=== PATIENT | male | born 1960 | race Caucasian/White ===

== ENCOUNTER 2021-04-05 08:21 | Outpatient (CLI) | payer MEDICAID, SELFPAY ==
--- NOTE | ~2021-04-05 | NM_ITS ---
EXAMINATION: NM lucia stress w perfusion DATE: 04/05/2021 13:08 INDICATION: Abnormal results of cardiovascular function study TECHNIQUE: Rest images were obtained following intravenous administration of 7.3 mCi Tc99m tetrofosmi n (Myoview). The patient was infused intravenously with Lexiscan (Regadenoson). Then, 23.8 mCi Tc99m tetrofosmin (Myoview) was administered intravenously, and stress images were obtained. Data was recon structed into short axis and horizontal and vertical long axis SPECT images. Gated SPECT images were also obtained. COMPARISON: None. FINDINGS: There is a perfusion defect involving the inferior basilar and inferolateral basilar segmen ts, the latter reversible consistent with ischemia and the former nonreversible consistent with infar ct. There is normal left ventricular chamber size, wall motion and ejection fraction. Left ventricu lar ejection fraction measures 53%. IMPRESSION: 1. Moderate severity nonreversible infarct at the basilar inferior segment with adjacent mild reversi ble ischemia at the basilar inferolateral segment. 2. Left ventricular ejection fraction measuring 53%. Reviewed, dictated and finalized at location A. IMPRESSION: 1. Moderate severity nonreversible infarct at the basilar inferior segment with adjacent mild reversible ischemia at the basilar inferolateral segment. 2. Left ventricular ejection fraction measuring 53%.
--- NOTE | 2021-04-05 08:32 | ECHO_ITS ---
Patient Info Name: Alfa Francisco Age: 60 years : 1960 Gender: Male Ht: 68 in Wt: 185 lbs BSA: 2.03 m2 HR: 58 bpm BP: 118 / 71 mmHg Technical Quality: Good Exam Date: 04/05/2021 8:48 AM Exam Location: [facility] Patient Status: Outpatient Admit Date: 04/05/2021 Staff Ordering Physician: Duane Jung MD Gunite Nozzle Operator: Shaneka Heck RDCS Attending Provider: Duane Jung MD Referring Physician: Fabiana LORENZO; Exam Type: CA echo doppler color flow Study Info Indications - STARKEY Complete two-dimensional, color flow and Doppler transthoracic echocardiogram is performed. Summary 1. Complete two-dimensional, color flow and Doppler transthoracic echocardiogram is performed. 2. Left ventricular chamber dimension is mildly enlarged. 3. Left ventricular systolic function is moderately reduced, estimated at 35-40%. 4. Inferior/posterior wall and lateral uriarte are hypokinetic. 5. The left ventricular diastolic function is grade I diastolic dysfunction. 6. E/e' 7 is not elevated. 7. Global longitudinal strain is abnormal at -16.1%. 8. Left atrial chamber dimension is mildly enlarged. 9. There is mild mitral valve regurgitation. 10. There is trace tricuspid valve regurgitation. 11. No pulmonary hypertension, estimated pulmonary arterial systolic pressure is 25 mmHg. Left Ventricle Inferior/posterior wall and lateral uriarte are hypokinetic. E/e' 7 is not elevated. Global longitudinal strain is abnormal at -16.1%. Left ventricular chamber dimension is mildly enlarged. Left ventricular systolic function is moderately reduced, estimated at 35-40%. The left ventricular diastolic function is grade I diastolic dysfunction. Right Ventricle Right ventricular chamber dimension is normal. Right ventricular systolic function is normal. Left Atria Left atrial chamber dimension is mildly enlarged. Right Atria Right atrial chamber dimension is normal. Aortic Valve The aortic valve is trileaflet. There is no aortic valve stenosis. There is no aortic valve regurgitation. Pulmonic Valve There is no pulmonic regurgitation. Mitral Valve There is no mitral valve stenosis. There is mild mitral valve regurgitation. Tricuspid Valve There is trace tricuspid valve regurgitation. No pulmonary hypertension, estimated pulmonary arterial systolic pressure is 25 mmHg. Pericardium/Pleural There is no pericardial effusion. Inferior Vena Cava Normal inferior vena cava with >50% collapse upon inspiration consistent with normal right atrial pressure, 5 mmHg. Aorta The aortic root size at the sinus of Valsalva is normal. Left Ventricular Outflow Tract Name Value Normal LVOT 2D LVOT Diameter 2.1 cm LVOT Doppler LVOT Peak Gradient 3 mmHg LVOT Mean Gradient 2 mmHg LVOT VTI 19 cm LVOT VTI/AV VTI Ratio 0.7 LVOT Stroke Volume 63 ml LVOT CO 11.9 l/min LVOT CI 5.9 l/min/m2
--- NOTE | 2021-04-05 11:19 | EST_ITS ---
Patient Info Name: Alfa Francisco Age: 60 years : 1960 Gender: Male Ht: 68 in Wt: 185 lbs BSA: 2.03 m2 Exam Date: 04/05/2021 11:59 AM Exam Location: [facility] Stress Patient Status: Outpatient Admit Date: 04/05/2021 Staff Ordering Physician: Duane Jung MD Attending Provider: Duane Jung MD Exercise Technologist: Jael Burleson RDCS Exercise Physician: Yosef Edwards DO Exam Type: CA stress lucia w NM Study Info Indications R06.00 - Dyspnea, unspecified A regadenoson stress test was performed. Summary 1. 1. Negative lexiscan stress test for ischemic ST changes by ECG criteria. 2. 2. Stable hemodynamics throughout the test. 3. 3. Nuclear scan to follow and will be reported separately. Please correlate with it. 4. 4. Patient informed of the above results. Protocol: Lexiscan Stress ECG Details Stage: REST Duration (min): 0 min : 49 sec HR (bpm): 54 SBP (mmHg): 122 DBP (mmHg): 70 Stage: REST Duration (min): 4 min : 45 sec HR (bpm): 63 SBP (mmHg): 122 DBP (mmHg): 70 Stage: STAGE 1 Duration (min): 1 min : 0 sec HR (bpm): 71 SBP (mmHg): 133 DBP (mmHg): 75 Stage: RECOVERY Duration (min): 1 min : 0 sec HR (bpm): 87 SBP (mmHg): 107 DBP (mmHg): 72 Stage: RECOVERY Duration (min): 2 min : 0 sec HR (bpm): 83 SBP (mmHg): 107 DBP (mmHg): 72 Stage: RECOVERY Duration (min): 3 min : 0 sec HR (bpm): 71 SBP (mmHg): 129 DBP (mmHg): 72 Stage: RECOVERY Duration (min): 3 min : 3 sec HR (bpm): 70 SBP (mmHg): 129 DBP (mmHg): 72 Rest HR: 63 bpm Peak HR: 87 bpm Rest Sys BP: 122 mmHg Peak Sys BP: 133 mmHg Max Pred HR: 159 bpm % Max Pred HR: 55 % Target HR: 135 bpm Max RPP: 11,571 bpm*mmHg Termination Reason: Completed protocol Cardiac Symptoms: Shortness of breath Total Time: 1 min : 0 sec Rest Hardy BP: 70 mmHg Peak Hardy BP: 75 mmHg Total Dose: 0.4 mg Resting ECG Sinus rhythm, IRBBB. Stress ECG No ST changes. Arrhythmias None. Report Signatures
== END 2021-04-05 08:22 | disposition home or self-care (01) ==
PROVIDERS: PCP Internal Medicine; Visit Provider Internal Medicine
DX: R06.00 Dyspnea, unspecified (principal); R06.02 Shortness of breath; R53.83 Other fatigue; R42 Dizziness and giddiness; I34.0 Nonrheumatic mitral (valve) insufficiency
CPT/HCPCS: 78452; 93017; 93306; A9502; J2785

== ENCOUNTER 2021-04-30 12:59 | Emergency (ER) | payer MEDICAID, SELFPAY ==
[2021-04-30] VITALS (14 sets, daily range): BP systolic 101–121; BP diastolic 64–88; PULSE 57–69; RESP 11–20; TEMP 36.8; O2SAT 96–100
--- NOTE | ~2021-04-30 | XR_ITS ---
EXAMINATION: XR chest 2V 04/30/2021 13:17 INDICATION: Centralized chest pain PROCEDURE: 2 view chest COMPARISON: 10/02/2016 FINDINGS: The lungs are clear. The cardiomediastinal silhouette is within normal limits. There are no pleural effusions. There is no pneumothorax suspected. IMPRESSION: 1: NO ACUTE CARDIOPULMONARY DISEASE. Reviewed, dictated and finalized at location A.
--- NOTE | 2021-04-30 13:01 | ECG_ITS ---
Measurements Intervals [place]and Rate: 67 P: 12 CO: 167 QRS: 10 QRSD: 110 T: 32 QT: 367 QTc: 390 Interpretive Statements SINUS RHYTHM BASELINE ARTIFACT- I, II, III, AVR, AVF NORMAL ECG Electronically Signed On 04-30-2021 13:23:18 CDT by Yosef Edwards D.O.
[2021-04-30 13:22] LABS: Basophils Absolute Auto 0.1 K/mm3 (0.0-0.1); Eosinophils Absolute Auto 0.3 K/mm3 (0-0.3); Eosinophils Percent Auto 5.5 % (0-4.4); Hemoglobin 14.4 g/dL (14.0-18.0); Immature Granulocyte Absolute 0.02 K/mm3 (0.00-0.031); Immature Granulocyte Percent A 0.4 % (0-0.5); Lymphocytes Absolute Auto 1.78 K/mm3 (0.9-3.2); Lymphocytes Percent Auto 36.3 % (18.3-44.2); Mean Corpuscular HGB Conc 33.5 g/dl (32-36); Mean Corpuscular Hemoglobin 31.2 pg (26-34); Mean Corpuscular Volume 93.3 fl (80-100); Mean Platelet Volume 11.3 fl (7.4-10.4); Monocytes Absolute Auto 0.5 K/mm3 (0.1-0.6); Monocytes Percent Auto 10.6 % (2.6-8.5); Neutrophils Absolute Auto 2.3 K/mm3 (1.3-6.7); Neutrophils Percent Auto 46.2 % (45.5-73.1); Platelet Count Result 197 k/mm3 (150-375); Red Blood Count 4.61 M/mm3 (4.6-6.20); Red Cell Distribution Width 12.7 % (11.5-14.5); White Blood Count 4.9 K/mm3 (4.5-10.0)
[2021-04-30 13:31] LABS: Anion Gap 9 mmol/L (8-16); Blood Urea Nitrogen 16 mg/dL (9-20); Calcium 9.1 mg/dL (8.4-10.2); Carbon Dioxide 26 mmol/L (22-30); Chloride 104 mmol/L (98-107); Estimated CRCL calculation 66 ml/min; Estimated Glomerular Filt Rate > 60; Glucose 274 mg/dL (65-110); Potassium 4.4 mmol/L (3.4-5.0); Sodium 139 mmol/L (137-145)
[2021-04-30 13:37] LABS: INR 0.8; Prothrombin Time 11.5 Seconds (11.1-14.7)
[2021-04-30 13:38] LABS: Partial Thromboplastin Time 21.8 SECONDS (22.3-36.8)
[2021-04-30 13:43] LABS: Troponin I < 0.012 ng/mL (0.000-0.034)
[2021-04-30 17:22] LABS: Troponin I < 0.012 ng/mL (0.000-0.034)
--- NOTE | 2021-04-30 19:17 | ED.GENADULT ---
HPI - General Adult General Chief complaint: Shortness of Breath/Dyspnea Stated complaint: tightness of chest Time Seen by Provider: 04/30/21 16:53 History of Present Illness HPI narrative: Patient is a 60-year-old male who presents ER with chest pain. Occurred earlier today when walking up the stairs. He had sharp left-sided pain that lasted for 1 second or less. It briefly radiated into his left neck. Patient recently had an abnormal stress test and sees Dr. Edwards. He is supposed to get an outpatient cardiac catheterization which has not been scheduled. He has not taken any of his nitroglycerin. Patient has Viagra prescribed but does not take that. He is having no chest pain at this time. No nausea/vomiting/diaphoresis. Reports compliance with home medications. Related Data Home Medications Medication Instructions Recorded Confirmed empagliflozin 25 mg-linagliptin 5 1 tablet PO QAM 04/18/20 04/26/21 mg-metformin ER 1,000 mg tablet,24hr aspirin 81 mg tablet,delayed 81 mg PO DAILY 04/02/21 04/26/21 release ascorbic acid (vitamin C) 500 mg See Rx Instructions PO .COMPLEX 04/03/21 04/26/21 capsule cholecalciferol (vitamin D3) 25 25 mcg PO DAILY 04/03/21 04/26/21 mcg (1,000 unit) capsule tfnkpfbx-uejbrbhu-osewu acid 400 See Rx Instructions PO .COMPLEX 04/03/21 04/26/21 mcg-vit K 20 mcg-lycop 300 mcg tablet omega 5-tkv-oir-fish oil 1,000 mg 1 cap PO TID 04/26/21 04/26/21 (120 mg-180 mg) capsule Allergies Allergy/AdvReac Type Severity Reaction Status Date / Time shellfish derived Allergy Unknown Hives Verified 04/30/21 13:05 Review of Systems Review of Systems: All systems reviewed & are unremarkable except as noted in HPI and below Constitutional: Constitutional: Denies chills, Denies fever(s) and Denies weakness ENT: Denies nasal congestion and Denies sore throat Cardiovascular: Cardiovascular: Reports chest pain, Denies rapid heart rate and Reports radiating jaw, neck or arm pain PMFSH Past Medical History Medical History 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,adult Colon cancer screening Colon cancer screening Diabetic retinopathy STARKEY (dyspnea on exertion) Eczema Encounter for routine adult health examination without abnormal findings Encounter for special screening examination for neoplasm of prostate Fatigue Heartburn Light headed long term use of drug Skin lesion SOB (shortness of breath) Family History Family History Sibling Family history of diabetes mellitus in first degree relative Family history of heart disease in male family member before age 55 Father Family history of primary malignant neoplasm of liver Mother Family history of malignant neoplasm of bone Social History Social History Smoking status: Never smoker Alcohol intake: current Exam Narrative: Exam Narrative: GENERAL: Well-appearing, well-nourished, and in no acute distress. HEAD: Normocephalic, atraumatic. ENT: Mucous membranes moist. CHEST: Clear to auscultation. No respiratory distress. HEART: Regular rate and rhythm. Normal peripheral pulses. ABDOMEN: Soft, nontender, nondistended. EXTREMITIES: Normal range of motion. No edema. SKIN: Warm, dry, no rash. NEURO: Alert and oriented x3. PSYCH: Normal mood and affect. Course Course Emergency Course: I discussed the case with Dr. Edwards. Would like the patient started on 10 mg of isosorbide daily. He does not want him to take his as needed sublingual nitroglycerin. He reports patient can be discharged home because there is no evidence of injury to the heart on troponin testing (negative x 3). Patient needs to schedule his outpatient cardiac catheterization. Vital Signs Vital signs: Vital Signs Temperature 98.2 F 04/30/21 13:02 Pulse Rate 69 04/30/21 13:02 Respiratory Rate 18 04/30/21 13:
[2021-04-30 19:43] LABS: Troponin I < 0.012 ng/mL (0.000-0.034)
== END 2021-04-30 20:37 | disposition home or self-care (01) ==
PROVIDERS: Emergency Provider Emergency Medicine; PCP Internal Medicine
DX: I20.8 Other forms of angina pectoris (principal); E11.319 Type 2 diabetes mellitus with unspecified diabetic retinopathy without macular edema; Z79.84 Long term (current) use of oral hypoglycemic drugs; Z79.82 Long term (current) use of aspirin
CPT/HCPCS: 36415; 71046; 80048; 84484; 85025; 85610; 85730; 93005; 99284

== ENCOUNTER 2021-06-21 14:17 | Outpatient (CLI) | payer OTHER, SELFPAY ==
--- NOTE | ~2021-06-21 | US_ITS ---
EXAMINATION: US venous doppler [facility] DATE: 06/21/2021 15:13 INDICATION: Left lower limb pain TECHNIQUE: Grayscale ultrasound images without and with compression and Doppler ultrasound images of the left lower extremity veins were obtained. COMPARISON: None. FINDINGS: The visualized portions of left common femoral vein, profunda (deep) femoral vein, femoral vein, popl iteal vein, peroneal veins, posterior tibial veins, gastrocnemius vein and greater saphenous vein out flow are patent. IMPRESSION: 1. No deep venous thrombosis in the left lower limb. Reviewed, dictated and finalized at location A.
== END 2021-06-21 14:18 | disposition home or self-care (01) ==
LOC: ANHIMG 14:22
PROVIDERS: PCP Internal Medicine; Visit Provider Internal Medicine
DX: M79.89 Other specified soft tissue disorders (principal); M79.662 Pain in left lower leg; M25.562 Pain in left knee
CPT/HCPCS: 93971

== ENCOUNTER 2021-10-30 07:42 | Outpatient (CLI) | payer OTHER, SELFPAY ==
--- NOTE | 2021-10-30 07:49 | ECHO_ITS ---
Patient Info Name: Alfa Francisco Age: 61 years : 1960 Gender: Male Ht: 68 in Wt: 180 lbs BSA: 2.00 m2 HR: 57 bpm BP: 105 / 64 mmHg Technical Quality: Good Exam Date: 10/30/2021 8:14 AM Exam Location: [facility] Patient Status: Outpatient Admit Date: 10/30/2021 Staff Ordering Physician: Yosef Edwards DO Center Maker Hand: Jael Burleson RDCS Attending Provider: Yosef Edwards DO Referring Physician: Jerry GRIFFIN; Exam Type: CA echo doppler color flow Study Info Indications I42.9 - Cardiomyopathy, unspecified Complete two-dimensional, color flow and Doppler transthoracic echocardiogram is performed. Summary 1. Complete two-dimensional, color flow and Doppler transthoracic echocardiogram is performed. 2. Left ventricular chamber dimension is normal. 3. Entire posterior wall is hypokinetic. Basal to mid lateral wall is hypokinetic. 4. Left ventricular systolic function is preserved, estimated at 50-55%. 5. The left ventricular diastolic function is grade I diastolic dysfunction. 6. E/e' 7 is not elevated. 7. Global longitudinal strain is mildly abnormal at -16.1%. 8. No pulmonary hypertension, estimated pulmonary arterial systolic pressure is 23 mmHg. Left Ventricle E/e' 7 is not elevated. Global longitudinal strain is mildly abnormal at -16.1%. Entire posterior wall is hypokinetic. Basal to mid lateral wall is hypokinetic. Left ventricular systolic function is preserved, estimated at 50-55%. Left ventricular chamber dimension is normal. The left ventricular diastolic function is grade I diastolic dysfunction. Right Ventricle Right ventricular systolic function is normal and with normal TAPSE 2.2 cm. Right ventricular chamber dimension is normal. Left Atria Left atrial chamber dimension is normal. Right Atria Right atrial chamber dimension is normal. Aortic Valve The aortic valve is trileaflet. There is no aortic valve stenosis. There is no aortic valve regurgitation. Pulmonic Valve There is no pulmonic regurgitation. Mitral Valve There is no mitral valve stenosis. There is no mitral valve regurgitation. Tricuspid Valve There is no tricuspid valve regurgitation. No pulmonary hypertension, estimated pulmonary arterial systolic pressure is 23 mmHg. Pericardium/Pleural There is no pericardial effusion. Inferior Vena Cava Normal inferior vena cava with >50% collapse upon inspiration consistent with normal right atrial pressure, 5 mmHg. Aorta The aortic root size at the sinus of Valsalva is normal. Left Ventricular Outflow Tract Name Value Normal LVOT 2D LVOT Diameter 2.0 cm LVOT Doppler LVOT Peak Gradient 3 mmHg LVOT Mean Gradient 2 mmHg LVOT VTI 18 cm LVOT VTI/AV VTI Ratio 0.9 LVOT Stroke Volume 58 ml LVOT CO 3.8 l/min LVOT CI 1.9 l/min/m2 Pulmonic Valve Name
== END 2021-10-30 07:43 | disposition home or self-care (01) ==
PROVIDERS: PCP Internal Medicine; Visit Provider Internal Medicine Cardiovascular Disease
DX: I42.9 Cardiomyopathy, unspecified (principal)
CPT/HCPCS: 93306

== ENCOUNTER 2022-07-02 10:57 | Outpatient (CLI) | payer MEDICARE, MEDICAID, SELFPAY ==
--- NOTE | ~2022-07-02 | XR_ITS ---
XR hip LT min 2V 07/02/2022 11:30 Indication: Left hip pain Procedure: 2 views left hip Comparison: No prior studies for comparison. Findings: Mild osteoarthritis of the left hip. No fracture or traumatic malalignment. Surrounding oss eous structures are unremarkable. There are femoral vascular calcifications. Impression: 1: Mild osteoarthritis of the left hip. Reviewed, dictated and finalized at location B. Impression: 1: Mild osteoarthritis of the left hip.
--- NOTE | ~2022-07-02 | XR_ITS ---
XR knee LT 3V 07/02/2022 11:30 Indication: Chronic left knee pain Procedure: 3 views left knee Comparison: No prior studies for comparison. Findings: Mild osteoarthritis of the left knee. There is a healed proximal fibular fracture. No signi ficant soft tissue abnormality. No foreign bodies. There is atherosclerosis. Impression: 1: Mild osteoarthritis of the left knee. Reviewed, dictated and finalized at location B. Impression: 1: Mild osteoarthritis of the left knee.
== END 2022-07-02 10:58 | disposition home or self-care (01) ==
LOC: ANHIMG 11:05
PROVIDERS: PCP Internal Medicine; Visit Provider Internal Medicine
DX: M16.12 Unilateral primary osteoarthritis, left hip (principal); M17.12 Unilateral primary osteoarthritis, left knee
CPT/HCPCS: 73502; 73562

== ENCOUNTER 2023-03-24 09:03 | Outpatient (CLI) | payer MEDICARE, MEDICAID, SELFPAY ==
--- NOTE | ~2023-03-24 | CT_ITS ---
EXAMINATION: CT chest abdomen pelvis w con DATE: 03/24/2023 09:42 CDT INDICATION: Fever. TECHNIQUE: Computed tomography (CT) of the chest, abdomen, and pelvis was performed with 100 cc Omnip aque 350 intravenous contrast. The dose-length product was 858.75 mGy-cm. Automated exposure control and iterative reconstruction technique were employed. COMPARISON: None FINDINGS: CHEST CT: Heart size is normal. No significant pleural or pericardial effusion. No thoracic lymphadenopathy. Th ere is mild atherosclerosis of the aorta and coronary arteries. No endobronchial lesions. No pneumoth orax. No focal airspace consolidation. No suspicious pulmonary nodules or masses. Thyroid gland is un remarkable. ABDOMEN/PELVIS CT: Hepatic steatosis. The spleen, pancreas, adrenal glands and right kidney are unremarkable. There is a 3.7 cm left renal cyst there is a smaller cyst located centrally in the left kidney. Gallbladder is present. No significant vascular abnormality. There are mildly enlarged mesenteric lymph nodes with s ubtle sheila infiltration of the mesenteric fat, likely reactive findings. Normal appendix. Nonobstruc tive bowel gas pattern. Mildly prominent prostate gland. Mild thoracic and lumbar spondylosis. No foc al lytic or blastic lesions. No free air or free fluid. There is osteoarthritis of the hips. No focal lytic or blastic lesions. IMPRESSION: 1. No acute findings to explain patient's symptoms. 2: Mildly enlarged mesenteric lymph nodes with associated mesenteric fatty infiltration, most likely reactive findings. 3: Hepatic steatosis. Reviewed, dictated and finalized at location [] IMPRESSION: 1. No acute findings to explain patient's symptoms. 2: Mildly enlarged mesenteric lymph nodes with associated mesenteric fatty infi ltration, most likely reactive findings. 3: Hepatic steatosis.
--- NOTE | ~2023-03-24 | CT_ITS ---
EXAMINATION: CT sinus wo con DATE: 03/24/2023 09:35 INDICATION: Fever. TECHNIQUE: Computed tomography (CT) of the paranasal sinuses was performed without intravenous contra st. The dose-length product was 320.10 mGy-cm. Automated exposure control and iterative reconstructio n technique were employed. COMPARISON: CT dated 10/02/2016 FINDINGS: There is mild mucosal thickening of the ethmoid sinuses. There is nasal septal deviation. O stiomeatal units are patent. Mastoids are pneumatized. No air-fluid levels. No mucoperiosteal reactio n. There is intracranial atherosclerosis. No midline shift. IMPRESSION: 1. Mild ethmoid sinus disease. Reviewed, dictated and finalized at location []
[2023-03-24 09:27] LABS: Estimated Glomerular Filt Rate > 60
[2023-03-24 10:40] LABS: CRP < 0.5 mg/dL (<1.0); Lactate Dehydrogenase 155 U/L (120-246)
[2023-03-24 10:44] LABS: Appearance Urine Clear (Clear); Bilirubin Urine Negative (Negative); Blood Urine Negative (Negative); Color Urine Yellow (Yellow); Glucose Urine UA 3+ mg/dL (Negative); Ketones Urine Negative (Negative); Leukocyte Esterase Ur Negative LEU/UL (Negative); Nitrate Urine Negative (Negative); Protein Urine Negative (Negative); Urobilinogen Urine 0.2 mg/dL (<2.0); pH Urine 6.5 (5.0-9.0)
[2023-03-24 10:48] LABS: Add Urine Microscopic? NO; Specific Grav Ur 1.061 (1.001-1.035)
[2023-03-24 10:51] LABS: Erythrocyte Sedimentation Rate 6 mm/hr (0-20)
[2023-03-24 10:55] LABS: Hepatitis B Surface Antigen Negative (Negative)
[2023-03-24 11:01] LABS: HAV RESULT Negative (Negative); Hepatitis B Core IgM Result Negative (Negative)
[2023-03-24 11:12] LABS: Hepatitis C Virus Antibody Negative (Negative)
[2023-03-26 19:23] LABS: NIL 0.01 IU/mL; Quantiferon TB Plus, 1T NEGATIVE (NEGATIVE); TB1-NIL 0.01 IU/mL; TB2-NIL 0.01 IU/mL
== END 2023-03-24 09:04 | disposition home or self-care (01) ==
PROVIDERS: PCP Internal Medicine; Visit Provider Internal Medicine
DX: R50.9 Fever, unspecified (principal); R53.83 Other fatigue; K76.0 Fatty (change of) liver, not elsewhere classified
CPT/HCPCS: 70486; 71260; 74177; 80074; 81003; 83615; 85652; 86140; 86480; 87040; Q9967

== ENCOUNTER 2024-01-06 09:48 | Outpatient (CLI) | payer MEDICARE, MEDICAID, SELFPAY ==
--- NOTE | ~2024-01-06 | CT_ITS ---
EXAMINATION:CT diagnostic chest wo con DATE: 01/06/2024 10:14 INDICATION: Hemoptysis. TECHNIQUE: Computed tomography (CT) of the chest was performed without intravenous contrast. Automate d exposure control and iterative reconstruction technique were employed. The dose-length product (DLP ) was 204.64 mGy-cm. COMPARISON: None. FINDINGS: The lungs demonstrate mild atelectasis. There are mild airspace and groundglass opacities i n left lower lobe. No pleural effusion. The heart size is normal. There are coronary artery calcifica tions. No pericardial effusion. There are no pathologically enlarged lymph nodes. There is mild thora cic spondylosis. IMPRESSION: 1. Mild airspace and groundglass opacities in left lower lobe, consistent with pneumonia. Reviewed, dictated and finalized at location A.
[2024-01-06 11:21] LABS: Basophils Absolute Auto 0.1 K/mm3 (0.0-0.1); Eosinophils Absolute Auto 0.2 K/mm3 (0-0.3); Eosinophils Percent Auto 3.6 % (0-4.4); Hematocrit 52.9 % (42.0-52.0); Hemoglobin 16.9 g/dL (14.0-18.0); Immature Granulocyte Absolute 0.02 K/mm3 (0.00-0.031); Immature Granulocyte Percent A 0.4 % (0-0.5); Lymphocytes Absolute Auto 1.56 K/mm3 (0.9-3.2); Lymphocytes Percent Auto 30.8 % (18.3-44.2); Mean Corpuscular HGB Conc 31.9 g/dl (32-36); Mean Corpuscular Hemoglobin 30.7 pg (26-34); Mean Corpuscular Volume 96.2 fl (80-100); Mean Platelet Volume 11.5 fl (7.4-10.4); Monocytes Absolute Auto 0.3 K/mm3 (0.1-0.6); Monocytes Percent Auto 5.1 % (2.6-8.5); Neutrophils Percent Auto 59.1 % (45.5-73.1); Platelet Count Result 328 k/mm3 (150-375); Red Cell Distribution Width 12.9 % (11.5-14.5); White Blood Count 5.1 K/mm3 (4.5-10.0)
[2024-01-06 11:34] LABS: Anion Gap 13 mmol/L (4-12); Blood Urea Nitrogen 21 mg/dL (9-20); Calcium 10.4 mg/dL (8.4-10.2); Carbon Dioxide 25 mmol/L (22-30); Chloride 103 mmol/L (98-107); Estimated Glomerular Filt Rate > 60; Glucose 221 mg/dL (65-110); Sodium 141 mmol/L (137-145)
[2024-01-08 13:38] LABS: NIL 0.02 IU/mL; Quantiferon TB Plus, 1T NEGATIVE (NEGATIVE)
== END 2024-01-06 09:49 | disposition home or self-care (01) ==
LOC: ANHIMG 09:49
PROVIDERS: PCP Internal Medicine; Visit Provider Internal Medicine
DX: R91.8 Other nonspecific abnormal finding of lung field (principal); R05.3 Chronic cough; R04.2 Hemoptysis
CPT/HCPCS: 36415; 71250; 80048; 85025; 86480; 87040

== ENCOUNTER 2024-04-13 10:31 | Outpatient (CLI) | payer MEDICARE, SELFPAY ==
--- NOTE | ~2024-04-13 | XR_ITS ---
3 VIEWS LUMBAR SPINE Ordering provider: Duane Jung MD History: . M54.50 - Low back pain, RT SIDE, NKI . Comparison: None. FINDINGS: VERTEBRAL BODIES: No visible fracture or subluxation. Degenerative changes of the spine. DISK SPACES: Normal.Facet joint disease at the level of L4-L5 and L5-S1. Left sacroiliitis. SOFT TISSUES: Normal. IMPRESSION: No acute osseous abnormality lumbar spine. Reviewed, dictated and finalized at location A.
--- NOTE | ~2024-04-13 | XR_ITS ---
SINGLE AP VIEW PELVIS Ordering provider: Duane Jung MD History: . M54.50 - Low back pain, RT SIDE PAIN, NKI . Comparison: July 02, 2022 FINDINGS: BONES: No acute fracture or dislocation. HIP JOINT SPACES: Mild Bilateral hip osteoarthritic changes. SACROILIAC JOINT SPACES/LUMBAR SPINE: Left sacroiliitis. Mild degenerative changes of the visualized lower lumbar spine. PUBIC SYMPHYSIS: Normal. SOFT TISSUES: Normal. IMPRESSION: No acute osseous abnormality pelvis. Reviewed, dictated and finalized at location A.
== END 2024-04-13 10:32 | disposition home or self-care (01) ==
PROVIDERS: PCP Internal Medicine; Visit Provider Internal Medicine
DX: M54.50 Low back pain, unspecified (principal); R10.2 Pelvic and perineal pain; M25.551 Pain in right hip
CPT/HCPCS: 72110; 72170

== ENCOUNTER 2025-01-01 08:14 | Outpatient (CLI) | payer MEDICARE, MEDICAID, SELFPAY ==
--- NOTE | ~2025-01-01 | XR_ITS ---
HISTORY: M25.519 - Pain in unspecified shoulder COMPARISON: None TECHNIQUE: 2 views of the right shoulder were performed FINDINGS: No acute fracture. The acromioclavicular joint space is markedly narrowed and contains osteophytes with upsloping of the distal clavicle. The glenohumeral joint space is maintained The visualized portion of the adjacent right lung is clear. The humeral head is well seated within the glenoid fossa. IMPRESSION: Degenerative disease within the acromioclavicular joint space. No acute fracture or anterior dislocation. Reviewed, dictated and finalized at location A.
--- NOTE | ~2025-01-01 | MR_ITS ---
MRI of the right shoulder Technique: Axial proton-density fat-sat images, coronal proton density fat-sat and T2 fat-sat images, and sagittal T1-weighted and T2 fat-sat images were acquired. Clinical History: Pain Findings: There is advanced AC joint degenerative change with bony productive change and joint space narrowing, mild edematous change about the joint. Coracoclavicular, coracoacromial, and coracohumeral ligaments are intact. There is advanced supraspinatus and infraspinatus tendinosis, without definite partial or full-thickn ess tear. Subscapularis tendon is intact. Tendon of the long head of biceps is probably thinned, but intact. Possible interstitial tear of the biceps tendon at the bicipital groove superiorly. No definite labral tear identified. Inferior glenohumeral ligament is intact. There is fluid distention of the subacromial/subdeltoid bur sa. There is minimal glenohumeral joint effusion with chondral malacia the medial aspect of the humer al head. No muscle atrophy or edema. Impression: Extensive rotator cuff tendinosis without definite partial or full-thickness tear. Thinning of the intra-articular biceps tendon with possible interstitial tear of the biceps tendon at the superior aspect of the bicipital groove. Advanced AC joint degenerative change. Subacromial/subdeltoid bursitis. Reviewed, dictated and finalized at [facility]. Impression: Extensive rotator cuff tendinosis without definite partial or full-thickness te ar. Thinning of the intra-articular biceps tendon with possible interstitial tear o f the biceps tendon at the superior aspect of the bicipital groove. Advanced AC joint degenerative change. Subacromial/subdeltoid bursitis.
--- OUTSIDE RECORDS SUMMARY | 2025-01-01 08:17 | XMS_ITS | Referral Summary ---
Author Organization [facility] Address [address] [place] [address] Care Team Providers Care Park Services Specialist Name Role Phone Duane Jung MD Primary Care Provider [phone] Allergies Active Allergy Reactions Criticality Noted Date Comments Shellfish Containing Products Hives,Swelling Medium 06/05/2021 Ate a lot of lobster bisque soup---throat swelled and he got hives Medications atorvastatin (LIPITOR) 40 mg tablet Take 40 mg by mouth daily 1 Active glimepiride (AMARYL) 2 mg tablet Take 2 mg by mouth 2 (two) times a day 1 Active metoprolol XL (TOPROL-XL) 25 mg extended release tablet Take 12.5 mg by mouth daily 1 Active aspirin 81 mg enteric coated tablet Take 81 mg by mouth daily Active gabapentin (NEURONTIN) 100 mg capsule Take 300 mg by mouth 3 (three) times a day Active isosorbide mononitrate (ISMO) 10 mg tablet Take 10 mg by mouth daily Active empaglifloz-dennis glip-metformin (Trijardy XR) 25-5-1,000 mg tablet, IR & ER, biphasic 24hr Take 1 tablet by mouth daily Active omega-3 fatty acids 1,000 mg capsule Take 4,000 mg by mouth daily Active cholecalciferol (VITAMIN D-3) 5,000 unit tablet Take 5,000 Units by mouth daily Active multivitamin capsule Take 2 capsules by mouth daily Active ascorbic acid (VITAMIN C) 250 mg tablet Take 500 mg by mouth daily Active famotidine (PEPCID) 40 mg tablet 1 Active ticagrelor (BRILINTA) 90 mg tabletIndication s:cardiovascular disease Take 1 tablet (90 mg total) by mouth 2 (two) times a day 60 tablet 11 1 Active losartan (COZAAR) 25 mg tablet Take 0.5 tablets (12.5 mg total) by mouth daily 15 tablet 11 1 Active Active Problems Problem Noted Date Diagnosed Date Coronary artery disease invo lving [place] coronary artery of [place] heart without angina pectoris 06/07/2021 Overview (06/07/2021): Added automatically from request for surgery [id number] S/P coronary artery stent placement 06/07/2021 Overview (06/07/2021): Added automatically from request for surgery [id number] Cardiomyopathy 05/03/2021 Overview (05/03/2021): Added automatically from request for surgery [id number] Dyspnea 05/03/2021 Overview (05/03/2021): Added automatically from request for surgery [id number] Abnormal stress test 05/03/2021 Overview (05/03/2021): Added automatically from request for surgery [id number] Social History Tobacco Use Types Packs/Day Years Used Date Smoking Tobacco: Never Smokeless Tobacco: Never AUDIT-C Answer Date Recorded Q1: How often do you have a drink containing alc ohol? Monthly or less 07/10/2021 Q2: How many drinks containi ng alcohol do you have on a typical day when you are drinking? 5 or 6 07/10/2021 Q3: How often do you have si x or more drinks on one occasion? 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 Gender Identity Not on file Sexual Orientation Not on file Last Filed Vital Signs Vital Sign Reading Time Taken Comments Blood Pressure 111/70 03/25/2023 8:20 PM CDT Pulse 58 03/25/2023 8:20 PM CDT Temperature 36.2 C (97.2 F) 03/25/2023 2:24 PM CDT Respiratory Rate 15 03/25/2023 8:20 PM CDT Oxygen Saturation 97% 03/25/2023 8:20 PM CDT Inhaled Oxygen Concentration - - Weight 83.9 kg (185 lb) 03/25/2023 2:24 PM CDT Height 172.7 cm (5' 8 ) 03/25/2023 2:24 PM CDT Body Mass Index 28.13 03/25/2023 2:24 PM CDT Plan of Treatment Not on file Medical Devices Implanted Type Area Birth Attendant Device Identifier Shelf Expiration Date Model / Serial / Lot Medtronic Usa Inc X [id number] Resolute [place] 3mm 2.1-2.7fr 34mm 140cm Rapid Exchange Radiopaque - [id number] Implanted:Qty: 1 on 06/05/2021 by Deo Zamora MD at [facility] Medtronic Inc 08/10/2022 [id number] / / UBmatrix Carrillo [id number] Device Closure Angio-Seal Vip Bondek-Plus Polyglyd L70 Cm Od6 Fr Odsec.035 In Vascular - [id number] Implanted:Qty: 1 on 06/05/2021 by Deo Zamora MD at [facility] [employer] 02/02/2022 [id number] / / Medtronic Usa Inc X [id number] Resolute [place] 2.5mm 2.1-2.7fr 38mm 140cm Rapid Exchange - [id number] Implanted:Qty: 1 on 07/10/2021 by Deo Zamora MD at [facility] Medtronic Inc 12/06/2022 [id number] X / / Medtronic Usa Inc X [id number] Resolute [place] 3mm 2.1-2.7fr 34mm 140cm Rapid Exchange Radiopaque - [id number] Implanted:Qty: 1 on 07/10/20[facility]/17/2024 [id number] X / / [place] [employer] Carrillo [id number] Synergy 3mm 24mm 144cm Radiopaque 1 Access Port Inflation Lumen - [id number] Implanted:Qty: 1 on 07/10/2021 by Deo Zamora MD at [facility] [employer] Carrillo 01/11/2023 [id number] / / Daig Carrillo [id number] Device Closure Angio-Seal Vip Bondek-Plus Polyglyd L70 Cm Od6 Fr Odsec.035 In Vascular - [id number] Implanted:Qty: 1 on 07/10/2021 by Deo Zamora MD at [facility] Carrillo 03/05/2022 [id number] / / Insurance [facility] MEDICARE [facility] MEDICARE [facility] MEDICARE [facility] Advance Directives For more information, please contact: [phone] * Full Code (Latest Code Status on File) Date Activated Date Inactivated Comments 07/10/2021 10:54 AM 07/11/2021 2:59 PM * Full Code Date Activated Date Inactivated Comments 06/05/2021 12:45 PM 06/06/2021 7:24 PM Care Teams Park Services Specialist Relationship Specialty Start Date End Date Duane Jung MD [address] [facility] [address] [place] [address] PCP - General Internal Medicine 07/11/21
--- OUTSIDE RECORDS SUMMARY | 2025-01-01 08:17 | XMS_ITS | Clinical Summary ---
Author Organization [facility] Email Data Source Address [address] [place] [address] Care Team Providers Care Correctional Program Officer Name Role Phone Duane Jung MD Primary Care Provider [phone] Source Comments [facility] Email Data Source,non-owned Affiliates and Associated Physician Practices is [facility] organization consisting of ambulatory clinics and hospital sitesin [place], [place], [place] and [place]. This disclosure is being madepursuant to the Care Everywhere program and may not contain all information available regarding this patient. Last updated 18.[facility] Email Data Source Allergies No known active allergies Medications * Be aware that medications may not be up to date on this document. Alwaysverify current medications with the patient. Medication Sig Dispensed Refills Start Date End Date Status metFORMIN (GLUCOPHAGE) 1000 MG tablet Take 1,000 mg by mouth 2 times daily with morning and evening meal Active gabapentin (NEURONTIN) 100 MG capsule Take 100 mg by mouth 3 times daily Active atorvastatin (LIPITOR) 20 MG tablet Take 20 mg by mouth at bedtime Active glimepiride (AMARYL) 2 MG tablet Take 2 mg by mouth daily with breakfast Active empagliflozin-linaGLI Ptin (GLYXAMBI) 25-5 MG tablet Take 1 tablet by mouth every morning Active Active Problems Problem Noted Date Diagnosed Date Flexor tenosynovitis of finger 06/21/2018 Family History Medical History Relation Name Comments Cancer - Liver Father Leukemia Mother Relation Name Status Comments Father Mother Social History Tobacco Use Types Packs/Day Years Used Date Smoking Tobacco: Never Smokeless Tobacco: Never Alcohol Use Standard Drinks/Week Comments No 0 (1 standard drink = 0.6 oz pur e alcohol) Sex and Gender Information Value Date Recorded Sex Assigned at Not on file Gender Identity Not on file Sexual Orientation Not on file Last Filed Vital Signs Vital Sign Reading Time Taken Comments Blood Pressure 107/53 10/01/2018 8:05 PM HYDRAULIC RUBBISH COMPACTOR MECHANIC Pulse 73 10/01/2018 8:05 PM HYDRAULIC RUBBISH COMPACTOR MECHANIC Temperature 36.3 C (97.3 F) 10/01/2018 3:39 PM HYDRAULIC RUBBISH COMPACTOR MECHANIC Respiratory Rate 20 10/01/2018 8:05 PM HYDRAULIC RUBBISH COMPACTOR MECHANIC Oxygen Saturation 100% 10/01/2018 8:05 PM HYDRAULIC RUBBISH COMPACTOR MECHANIC Inhaled Oxygen Concentration - - Weight 81.6 kg (180 lb) 10/01/2018 3:39 PM HYDRAULIC RUBBISH COMPACTOR MECHANIC Height 172.7 cm (5' 8 ) 10/01/2018 3:39 PM HYDRAULIC RUBBISH COMPACTOR MECHANIC Body Mass Index 27.37 10/01/2018 3:39 PM HYDRAULIC RUBBISH COMPACTOR MECHANIC Plan of Treatment Health Maintenance Due Date Last Done Comments COLOGUARD (AGES 45-75) - COL ON CA SCREENING 1959 COLON MONITORING 1959 COLONOSCOPY - COLON CA SCREENING 1959 CT COLONOGRAPHY - COLON CA SCREENING 1959 Colorectal Cancer Screening 1959 FIT - COLON CA SCREENING 1959 FLEX SIG - COLON CA SCREENING 1959 HIV SCREENING 1974 HEPATITIS C SCREENING 06/17/1977 DTAP/TDAP/TD VACCINES (1 - Tdap) 1978 PNEUMOCOCCAL VACCINE 50+ (1 of 1 - PCV) 2009 ZOSTER VACCINE (1 of 2) 2009 COVID-19 VACCINE ( - 2023-2 5 season) 2024 INFLUENZA VACCINE (#1) 2024 DEPRESSION SCREENING 10/06/2024 Respiratory Syncytial Virus (RSV) Vaccine Pt: or over 60 yrs (1 - 1-dose 75+ series) 2034 HEPATITIS B VACCINE Aged Out No longe r eligible based on patient's age to complete this topic HIB VACCINE Aged Out No longer eligi ble based on patient's age to complete this topic HPV VACCINE Aged Out No longer eligi ble based on patient's age to complete this topic MENINGOCOCCAL (Group B) VACC INE SHARED DECISION-MAKING Aged Out No longer eligibl e based on patient's age to complete this topic MENINGOCOCCAL GROUPS A/C/Y/W VACCINE Aged Out No longer eligible b ased on patient's age to complete this topic Advance Directives * Full Code (Latest Code Status on File) Date Activated Date Inactivated Comments 06/21/2018 12:05 AM 06/21/2018 4:51 PM Care Teams Correctional Program Officer Relationship Specialty Start Date End Date Duane Jung MD [address] [place] [address] PCP - General Internal Medicine 06/20/18
--- OUTSIDE RECORDS SUMMARY | 2025-01-01 08:17 | XMS_ITS | Clinical Summary ---
Author Organization [facility] Address [address] [place] [address] Care Team Providers Care Digital Content Producer Name Role Phone Duane Jung MD Primary Care Provider [phone] Allergies Active Allergy Reactions Criticality Noted Date [...] Diagnosed Date Coronary artery disease invo lving [place] coronary artery of [place] heart without angina pectoris 06/07/2021 Overview (06/07/2021): Added automatically from request for surgery [id number] S/P coronary artery stent placement 06/07/2021 Overview (06/07/2021): Added automatically from request for surgery [id number] Cardiomyopathy 05/03/2021 Overview (05/03/2021): Added automatically from request for surgery [id number] Dyspnea 05/03/2021 Overview (05/03/2021): Added automatically from request for surgery [id number] Abnormal stress test 05/03/2021 Overview (05/03/2021): Added automatically from request for surgery [id number] Surgical History Surgery Date Site/Laterality Comments CORONARY ANGIOPLASTY WITH STENT PLACEMENT Medical History Medical History Date Comments HLD (hyperlipidemia) SOB (shortness of breath) Type 2 diabetes mellitus (HCC) GERD (gastroesophageal reflux disease) Fracture 1985 both bones of le ft leg fractured, 13 months in a cast Eczema left leg Neuropathy Left leg swelling Cardiomyopathy (HCC) CAD (coronary artery disease) Family History Medical History Relation Name Comments Cancer Father Cancer Mother Relation Name Status Comments Father Mother [...] on file 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 Gender Identity Not on file Sexual Orientation Not on file Obstetrics History Last Filed Vital Signs Vital Sign Reading [...] 03/25/2023 2:24 PM CDT Plan of Treatment Health Maintenance Due Date Last Done Comments Colon Cancer Screening-Colonoscopy 1959 Depression Screening 1959 Hepatitis C Screening 1959 Prostate Cancer Screening-PSA 1959 DTaP/Tdap/Td Vaccine (1 - Tdap) 1970 Hepatitis B Screening 1977 Pneumococcal vaccine 65+ (1 of 1 - PCV) 2009 Zoster Vaccine (1 of 2) 2009 Fall Risk Assessment 07/11/2022 07/11/2021 Influenza Vaccine (#1) 2024 Abdominal Aortic Aneurysm (AAA) Screen 2024 Well Visit 65+ 2024 Medical Devices Implanted Type Area Animal Nutritionist Device Identifier Shelf Expiration Date Model / Serial / Lot MedInteractive [employer] Inc X [id number] Resolute [place] 3mm 2.1-2.7fr 34mm 140cm Rapid Exchange Radiopaque - [id number] Implanted:Qty: 1 on 06/05/2021 by Deo Zamora MD at [facility] Medtronic Inc 08/10/2022 [id number] X / / Daig Carrillo [id number] Device Closure Angio-Seal Vip Bondek-Plus Polyglyd L70 Cm Od6 Fr Odsec.035 In Vascular - [id number] Implanted:Qty: 1 on 06/05/2021 by Deo Zamora MD at [facility] Medical Carrillo 02/02/2022 [id number] / / Medtronic Usa Inc X [id number] Resolute [place] 2.5mm 2.1-2.7fr 38mm 140cm Rapid Exchange - [id number] Implanted:Qty: 1 on 07/10/2021 by Deo Zamora MD at [facility] Medtronic Inc 12/06/2022 [id number] X / / Medtronic Usa Inc X [id number] Resolute [place] 3mm 2.1-2.7fr 34mm 140cm Rapid Exchange Radiopaque - [id number] Implanted:Qty: 1 on 07/10/2021 by Deo Zamora MD at [facility] Medtronic Inc 02/17/2024 [id number] X / / [place] [employer] Carrillo [id number] Synergy 3mm 24mm 144cm Radiopaque 1 Access Port Inflation Lumen - [id number] Implanted:Qty: 1 on 07/10/2021 by Deo Zamora MD at [facility] [place] [employer] Carrillo 01/11/2023 [id number] 300 / / Daig Carrillo [id number] Device Closure Angio-Seal Vip Bondek-Plus Polyglyd L70 Cm Od6 Fr Odsec.035 In Vascular - [id number] Implanted:Qty: 1 on 07/10/2021 by Deo Zamora MD at [facility] Medical Carrillo 03/05/2022 [id number] / / Insurance [facility] MEDICARE [facility] MEDICARE [facility] Address: [address] [address] [facility] MEDICARE [employer] Advance Directives For more information, please contact: [phone] * Full Code (Latest Code Status on File) Date Activated Date Inactivated Comments 07/10/2021 10:54 AM 07/11/2021 2:59 PM * Full Code Date Activated Date Inactivated Comments 06/05/2021 12:45 PM 06/06/2021 7:24 PM Care Teams Digital Content Producer Relationship Specialty Start Date End Date Duane Jung MD [address] [facility] [address] [place] [address] PCP - General Internal Medicine 07/11/21
== END 2025-01-01 08:15 | disposition home or self-care (01) ==
PROVIDERS: PCP Internal Medicine; Visit Provider Internal Medicine
DX: M19.011 Primary osteoarthritis, right shoulder (principal); S46.219A Strain of muscle, fascia and tendon of other parts of biceps, unspecified arm, initial encounter; X58.XXXA Exposure to other specified factors, initial encounter
CPT/HCPCS: 73030; 73221

== ENCOUNTER 2025-06-07 14:45 | Outpatient (CLI) | payer MEDICARE, SELFPAY ==
--- NOTE | ~2025-06-07 | XR_ITS ---
EXAM/ PROCEDURE: XR shoulder RT min 2V - 06/07/2025 15:01 CDT HISTORY: 64 years old Male with M75.81 - Other shoulder lesions, right shoulder COMPARISON: None available TECHNIQUE: Four view(s) FINDINGS/ IMPRESSION: There are no fractures or dislocations.Joint space narrowing, subchondral sclerosis, subchondral cyst formation and osteophyte formation, compatible with moderate osteoarthritis. Reviewed, dictated and finalized at location N.
--- OUTSIDE RECORDS SUMMARY | 2025-06-07 14:58 | XMS_ITS | Clinical Summary ---
Author Organization [facility] Address [address] [place] [address] Care Team Providers Care Supervisor Press Room Name Role Phone Duane Jung MD Primary Care Provider [phone] Allergies Active Allergy Reactions Criticality Noted Date [...] Diagnosed Date Coronary artery disease invo lving [place] coronary artery of [place] heart without angina pectoris 06/07/2021 Overview (06/07/2021): Added automatically from request for surgery [id number] S/P coronary artery stent placement 06/07/2021 Overview (06/07/2021): Added automatically from request for surgery [id number] Cardiomyopathy 05/03/2021 Overview (05/03/2021): Added automatically from request for surgery [id number] Dyspnea 05/03/2021 Overview (05/03/2021): Added automatically from request for surgery [id number] Abnormal stress test 05/03/2021 Overview (05/03/2021): Added automatically from request for surgery [id number] Surgical History Surgery Date Site/Laterality Comments CORONARY ANGIOPLASTY WITH STENT PLACEMENT Medical History Medical History Date Comments HLD (hyperlipidemia) SOB (shortness of breath) Type 2 diabetes mellitus GERD (gastroesophageal reflux disease) Fracture 1985 both bones of le ft leg fractured, 13 months in a cast Eczema left leg Neuropathy Left leg swelling Cardiomyopathy CAD (coronary artery disease) Family History Medical [...] on file 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 Gender Identity Not on file Sexual Orientation [...] 2:24 PM CDT Height 172.7 cm (5' 8) 03/25/2023 2:24 PM CDT Body Mass Index [...] 2) 2009 Fall Risk Assessment 07/11/2022 07/11/2021 Abdominal Aortic Aneurysm (AAA) Screen 2024 Well Visit 65+ 2024 Influenza Vaccine (#1) 2025 Medical Devices Implanted Type Area Mattress Spring Encaser Device Identifier Shelf Expiration Date Model / Serial / Lot MedNervana Systems Inc X [id number] Resolute [place] 3mm 2.1-2.7fr 34mm 140cm Rapid Exchange Radiopaque - [id number] Implanted:Qty: 1 on 06/05/2021 by Deo Zamora MD at [facility] Medtronic Inc 08/10/2022 [id number] X / / Daig Carrillo [id number] Device Closure Angio-Seal Vip Bondek-Plus Polyglyd L70 Cm Od6 Fr Odsec.035 In Vascular - [id number] Implanted:Qty: 1 on 06/05/2021 by Deo Zamora MD at [facility] Medical Carrillo 02/02/2022 [id number] / / Medtronic Usa Inc X [id number] Resolute [place] 2.5mm 2.1-2.7fr 38mm 140cm Rapid Exchange - [id number] Implanted:Qty: 1 on 07/10/2021 by Deo Zamora MD at [facility] Medtronic Inc 12/06/2022 [id number] X / / Medtronic Usa Inc X [id number] Resolute [place] 3mm 2.1-2.7fr 34mm 140cm Rapid Exchange Radiopaque - [id number] Implanted:Qty: 1 on 07/10/2021 by Deo Zamora MD at [facility] Medtronic Inc 02/17/2024 [id number] X / / [place] [employer] Carrillo [id number] Synergy 3mm 24mm 144cm Radiopaque 1 Access Port Inflation Lumen - [id number] Implanted:Qty: 1 on 07/10/2021 by Deo Zamora MD at [facility] [employer] Carrillo 01/11/2023 [id number] / / Daig Carrillo [id number] Device Closure Angio-Seal Vip Bondek-Plus Polyglyd L70 Cm Od6 Fr Odsec.035 In Vascular - [id number] Implanted:Qty: 1 on 07/10/2021 by Deo Zamora MD at [facility] Medical Carrillo 03/05/2022 [id number] / / Insurance [facility] MEDICARE [facility] MEDICARE [facility] [place] [address] [facility] MEDICARE [employer] Advance Directives For more information, please contact: [phone] * Full Code (Latest Code Status on File) Date Activated Date Inactivated Comments 07/10/2021 10:54 AM 07/11/2021 2:59 PM * Full Code Date Activated Date Inactivated Comments 06/05/2021 12:45 PM 06/06/2021 7:24 PM Care Teams Supervisor Press Room Relationship Specialty Start Date End Date Duane Jung MD [address] [facility] [address] [place] [address] PCP - General Internal Medicine 07/11/21
--- OUTSIDE RECORDS SUMMARY | 2025-06-07 14:58 | XMS_ITS | Clinical Summary ---
Author Organization [facility] Address [address] [place] [address] Care Team Providers Care Hoop Puncher Name Role Phone Duane Jung MD Primary Care Provider [phone] Source Comments [facility],non-owned Affiliates and Associated Physician Practices is amultiple site organization consisting of ambulatory clinics and hospital sitesin [place], [place], [place] and [place]. This disclosure is being madepursuant to the Care Everywhere program and may not contain all information available regarding this patient. Last updated 18.[facility] Allergies No known active allergies Medications * Be aware that medications may not be up to date on this document. Alwaysverify current medications with the patient. metFORMIN (GLUCOPHAGE) 1000 MG tablet Take 1,000 mg by mouth 2 times daily with morning and evening meal Active gabapentin (NEURONTIN) 100 MG capsule Take 100 mg by mouth 3 times daily Active atorvastatin (LIPITOR) 20 MG tablet Take 20 mg by mouth at bedtime Active glimepiride (AMARYL) 2 MG tablet Take 2 mg by mouth daily with breakfast Active empagliflozin-l inaGLIPtin (GLYXAMBI) 25-5 MG tablet Take 1 tablet [...] at Not on file Legal Sex Male 10:14 PM CDT Gender Identity Not on file Sexual Orientation Not on file Last Filed Vital Signs Vital Sign Reading Time Taken Comments Blood Pressure 107/53 10/01/2018 8:05 PM SMOKING PIPES CLEANER Pulse 73 10/01/2018 8:05 PM SMOKING PIPES CLEANER Temperature 36.3 C (97.3 F) 10/01/2018 3:39 PM SMOKING PIPES CLEANER Respiratory Rate 20 10/01/2018 8:05 PM SMOKING PIPES CLEANER Oxygen Saturation 100% 10/01/2018 8:05 PM SMOKING PIPES CLEANER Inhaled Oxygen Concentration - - Weight 81.6 kg (180 lb) 10/01/2018 3:39 PM SMOKING PIPES CLEANER Height 172.7 cm (5' 8) 10/01/2018 3:39 PM SMOKING PIPES CLEANER Body Mass Index 27.37 10/01/2018 3:39 PM SMOKING PIPES CLEANER Plan of Treatment Health Maintenance Due Date [...] VACCINE (1 of 2) 2009 COVID-19 VACCINE (1 - 2023-2 5 season) 2024 DEPRESSION SCREENING 10/06/2024 INFLUENZA VACCINE (#1) 2025 Respiratory Syncytial Virus (RSV) Vaccine Pt: or [...] 12:05 AM 06/21/2018 4:51 PM Care Teams Hoop Puncher Relationship Specialty Start Date End Date Duane Jung MD [address] [place] [address] PCP - General Internal Medicine 06/20/18
== END 2025-06-07 14:46 | disposition home or self-care (01) ==
PROVIDERS: PCP Internal Medicine; Visit Provider Orthopaedic Surgery
DX: M75.81 Other shoulder lesions, right shoulder (principal)
CPT/HCPCS: 73030

== ENCOUNTER 2025-08-12 08:51 | Emergency (ER) | payer MEDICARE, SELFPAY ==
[2025-08-12] VITALS (13 sets, daily range): BP systolic 102–129; BP diastolic 49–71; PULSE 64–75; RESP 10–39; TEMP 36.4; O2SAT 96–99
--- NOTE | ~2025-08-12 | XR_ITS ---
Examination: XR chest 2V Clinical History: syncopal episode Comparison: CT chest 01/06/2024 Technique: PA and Lateral Findings: Cardiomediastinal silhouette normal size and configuration. Lungs clear. No acute bony abnormality. IMPRESSION: 1. No acute cardiopulmonary findings. Reviewed, dictated and finalized at location R. NO ASSISTANT MANAGER
--- NOTE | ~2025-08-12 | CT_ITS ---
EXAMINATION:CT diagnostic chest w con DATE: 08/12/2025 12:12 INDICATION: Shortness of breath TECHNIQUE: Computed tomography (CT) of the chest was performed with intravenous contrast. The dose-length product (DLP) was 164.20 mGy-cm. COMPARISON: January 06, 2024 FINDINGS: The lungs are clear with no consolidation effusion or pneumothorax. Central and large airways patent. Mediastinal structures appear normal in size and enhancement. No central large pulmonary emboli or thoracic aortic aneurysm/dissection. Extensive coronary artery calcification and/or stenting. No significant pericardial effusion or bulky lymphadenopathy/masses. Diffuse degenerative changes throughout the bones which otherwise appear intact. No acute process seen in the visualized portion of the upper abdomen. Extrathoracic soft tissues unremarkable. IMPRESSION: 1. No focal acute process to explain source of patient's symptoms. 2. Several chronic appearing findings as above. Reviewed, dictated and finalized at location A. ER HAND
--- NOTE | ~2025-08-12 | CT_ITS ---
CT HEAD NON-CONTRAST Clinical History: syncope, dizziness Comparison: MRI brain 10/03/2016 Technique: Unenhanced axial images skull base to vertex Coronal, sagittal reformats CT images acquired with automatic exposure control for dose reduction DLP: 605 mGy-cm Findings: Sulci, ventricles: Unremarkable. No intracerebral hemorrhage. No evidence acute territorial infarct. No mass effect, midline shift. Bony calvarium intact. Visualized paranasal sinuses: Clear. Mastoid air cells: Clear. IMPRESSION: 1. No acute intracranial findings. Reviewed, dictated and finalized at location R. TRIMMING MACHINE OPERATOR
--- NOTE | 2025-08-12 09:05 | ECG_ITS ---
Test Date: 2025-08-12 09:12:08 Measurements Intervals [place] Rate: 65 P: 29 SD: 158 QRS: 10 QRSD: 107 T: 29 QT: 385 QTc: 401 Interpretive Statements SINUS RHYTHM No previous ECG available for comparison Electronically Signed On 08-12-2025 10:06:08 CABLE ENGINEER by Nacho Malin D.O
[2025-08-12 10:01] LABS: Hematocrit 42.0 % (42.0-52.0); Hemoglobin 14.2 g/dL (14.0-18.0); Immature Granulocyte Percent A 0.5 % (0-0.5); Lymphocytes Absolute Auto 1.41 K/mm3 (0.9-3.2); Mean Corpuscular HGB Conc 33.8 g/dl (32-36); Mean Corpuscular Hemoglobin 31.7 pg (26-34); Mean Corpuscular Volume 93.8 fl (80-100); Nucleated Red Blood Cells Absolute Auto 0.000 K/mm3 (0.0-0.012); Nucleated Red Blood Cells Perc 0.0 % (0.0-0.2); Platelet Count Result 213 k/mm3 (150-375); Red Blood Count 4.48 M/mm3 (4.6-6.20); White Blood Count 6.6 K/mm3 (4.5-10.0)
[2025-08-12 10:12] LABS: Alanine Aminotransferase 29 U/L (6-50); Albumin Level 4.3 g/dL (3.5-5.1); Alkaline Phosphatase 72 U/L (38-126); Anion Gap 10 mmol/L (4-12); Aspartate Amino Transferase 30 U/L (17-59); Bilirubin,Total 0.7 mg/dL (0.2-1.3); Blood Urea Nitrogen 16 mg/dL (9-20); Calcium 9.3 mg/dL (8.4-10.2); Carbon Dioxide 21 mmol/L (22-30); Chloride 105 mmol/L (98-107); Estimated CRCL calculation 82 ml/min; Estimated Glomerular Filt Rate > 60; Glucose 211 mg/dL (65-110); Potassium 5.0 mmol/L (3.4-5.0); Sodium 136 mmol/L (137-145); Total Protein 7.1 g/dL (6.3-8.2)
--- NOTE | 2025-08-12 10:58 | ED_ITS ---
HPI - Syncope General Chief Complaint: Syncope Stated Complaint: syncope Time Seen by Provider: 08/12/25 10:24 Source: patient and RN notes reviewed Mode of arrival: EMS Limitations: no limitations History of Present Illness HPI narrative: Patient presents with an episode of near syncope. Awoke at 0430 and got up to use the bathroom. Urinated while standing and immediately after doing so, became dizzy and became lightheaded. Cement their balance was off and they might fall down and caught himself on the dresser. Did not lose consciousness or hit head. Then had tunnel vision and became diaphoretic. Cold rag applied and had an episode of nonbloody liquid stool. No injury. Went to PCP's office Dr Jung, to try to be seen this am w/o appointment and was noted to have BG 225mg/dL. SBP 80mmHg on orthostatic assessment. Denies CP. Has been feeling tired with SOB x1 week, feeling off and confused, fatigued. HIstory of multiple cardiac stents, last several were a few years ago. History DM not on insulin. History left lower extremity fracture causing left > R swelling but during the incident had cramping in R leg. 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 BMI 26.0-26.9,adult Tick bite of back Cough with hemoptysis Chronic cough Night sweats Left knee pain Tingling of right arm and right side of face MRSA infection Infected hand Generalized abdominal pain Change in mole Atypical chest pain Abscess Diastolic dysfunction DM type 2 (diabetes mellitus, type 2) Orthostatic hypotension Lymphedema ASHD (arteriosclerotic heart disease) Pain and swelling of left lower extremity BMI 28.0-28.9,adult STARKEY (dyspnea on exertion) Heartburn SOB (shortness of breath) Fatigue Light headed Eczema Skin lesion Encounter for special screening examination for neoplasm of prostate Colon cancer screening 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,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 Diabetic retinopathy Surgical History Surgical History (Updated 08/14/25 @ 09:22 by Carolina Rich MD) S/P coronary artery stent placement multiple S/P cataract surgery Family History Family History Sibling Family history of diabetes mellitus in first degree relative Family history of heart disease in male family member before age 55 Father Family history of primary malignant neoplasm of liver Mother Family history of malignant neoplasm of bone Social History Social History Second hand tobacco smoke exposure: No Alcohol intake: current Lack of Transportation: No Lack of Food: Never True Current Housing: I Have Housing Concerned About Future Housing: No Difficulty Paying Gas/Electric Bills: YES Difficulty Paying for Meds: No Currently Unemployed: Decline to Answer Education: Decline to Answer Difficulty w/ Childcare or Family Care: No Living arrangements: with family Occupation/Education: retired Gender identity (if verbalized by the patient): Male Exam 2 Narrative: GENERAL: Well-appearing, well-nourished, and in no acute distress. HEAD: Normocephalic, atraumatic. EYES: Non injected, non icteric ENT: Nares clear, no rhinorrhea or epistaxis. Gross auditory acuity intact. NECK: Supple. No meningismus. CHEST: Speaking in full sentences. No respiratory distress. HEART: Regular rate and rhythm. . ABDOMEN: Soft, nondistended. No rigidity or guarding. Not peritoneal EXTREMITIES: Normal range of motion. Left lower extremity edema. SKIN: Warm, dry, no rash. NEURO: No focal deficits. Alert and oriented. Answering questions. Following commands. Normal speech without aphasia or dysarthria. PSYCH: Normal mood and affect. Course Vital Signs Vital signs: Vital Signs Temperature 97.6 F 08/12/25 08:51 Pulse Rate 68 08/12/25 08:51 Respiratory Rate 14 08/12/25 08:51 Blood Pressure 110/63 08/12/25 08:51 Pulse Oximetry 97 08/12/25 08:51 Oxygen Delivery Room Air 08/12/25 08:51 Temperature 97.6 F 08/12/25 08:51 Pulse Rate 73 08/12/25 11:01 Respiratory Rate 23 H 08/12/25 11:01 Blood Pressure 120/61 08/12/25 11:01 Pulse Oximetry 96 08/12/25 11:01 Oxygen Delivery Room Air 08/12/25 08:51 MDM - Syncope MDM Narrative Medical decision making narrative: Patient presents after a near syncopal episode this morning 0430 after micturation. In the emergency department they are afebrile with vital signs within normal limits. [place] Syncope Rule (although patient had NEAR-syncope): Congestive heart failure history: 0 Hematocrit <30%: 0 EKG abnormal (changed or any non-sinus rhythm):0 SOB symptoms: Yes SBP <90mmHg at triage: No CBC unremarkable except for abnormalities on the differential. Hyperglycemia without anion gap or acidosis. Pseudo hyponatremia as it corrects to 138/139 given the hyperglycemia. D dimer WNL; will not proceed with CTA imaging, nevertheless, his dyspnea on exertion and fatigue reasonable to proceed with CT chest. Swelling in L leg is chronic, per patient and review of PMH in EMR. Troponin within normal limits; no need to repeat as no chest pain and lab obtained several hours after the incident. BNP within normal limits. CPK okay. Viral swab negative. UA with glucosuria but otherwise without markers of infection or dehydration. Orthostatic vital signs reviewed. Patient has otherwise been feeling well. I did encourage him to follow up with PCP and loss prevention representative but otherwise stable for DC. Differential Diagnosis Differential diagnosis: Likely syncope due to orthostatic hypotension, vasovagal syncope, complete atrioventricular block, pulmonary embolism, dehydration and other (cardiomyopathy; ACS; heart failure; tachydysrhythmia, Rd-dysrhythmia) Lab Data 08/12/25 09:56 08/12/25 09:56 Labs: Lab Results 08/12/25 08/12/25 08/12/25 Range/Units 09:56 11:15 12:14 WBC 6.6 (4.5-10.0) K/mm3 RBC 4.48 L (4.6-6.20) M/mm3 Hgb 14.2 (14.0-18.0) g/dL Hct 42.0 (42.0-52.0) % MCV 93.8 (80-100) fl MCH 31.7 (26-34) pg MCHC 33.8 (32-36) g/dl RDW 13.1 (11.5-14.5) % Plt Count 213 (150-375) k/mm3 MPV 10.8 H (7.4-10.4) fl Immature Gran % (Auto) 0.5 (0-0.5) % Neut % (Auto) 66.2 (45.5-73.1) % Lymph % (Auto) 21.5 (18.3-44.2) % [place] % (Auto) 6.7 (2.6-8.5) % Eos % (Auto) 4.0 (0-4.4) % Baso % (Auto) 1.1 (0.2-1.2) % Lymph # (Auto) 1.41 (0.9-3.2) K/mm3 [place] # (Auto) 0.4 (0.1-0.6) K/mm3 Eos # (Auto) 0.3 (0-0.3) K/mm3 Baso # (Auto) 0.1 (0.0-0.1) K/mm3 Abs Immat Gran (auto) 0.03 (0.00-0.031) K/mm3 Absolute Neuts (auto) 4.3 (1.3-6.7) K/mm3 Absolute Nucleated RBC 0.000 (0.0-0.012) K/mm3 Nucleated RBC % 0.0 (0.0-0.2) % D-Dimer 0.27 (<0.48) ug/mL Sodium 136 L (137-145) mmol/L Potassium 5.0 (3.4-5.0) mmol/L Chloride 105 (98-107) mmol/L Carbon Dioxide 21 L (22-30) mmol/L Anion Gap 10 (4-12) mmol/L BUN 16 (9-20) mg/dL Creatinine 0.74 (0.7-1.3) mg/dL Estim Creat Clear Calc 82 ml/min Estimated GFR > 60 (59 - ) Glucose 211 H (65-110) mg/dL Calcium 9.3 (8.4-10.2) mg/dL Magnesium 1.9 (1.6-2.3) mg/dL Total Bilirubin 0.7 (0.2-1.3) mg/dL AST 30 (17-59) U/L ALT 29 (6-50) U/L Alkaline Phosphatase 72 (38-126) U/L Total Creatine Kinase 124 (55-170) U/L Troponin I < 0.012 (0.000-0.034) ng/mL NT-Pro-B Natriuret Pep 35 (19.9-100) pg/mL Total Protein 7.1 (6.3-8.2) g/dL Albumin 4.3 (3.5-5.1) g/dL Urine Color Yellow (Yellow) Urine Appearance Clear (Clear) Urine pH 5.5 (5.0-9.0) Ur Specific [place] 1.029 (1.001-1.035) Urine Protein Negative (Negative) mg/dL Urine Glucose (UA) 3+ H (Negative) mg/dL Urine Ketones Negative (Negative) mg/dL Ur Blood (Man) Negative (Negative) Urine Nitrate Negative (Negative) Urine Bilirubin Negative (Negative) Urine Urobilinogen 1.0 (<2.0) mg/dL Leukocyte Esterase Rfl Negative (Negative) AMELIA/UL Influenza A (RT-PCR) Negative (Negative) Influenza B (RT-PCR) Negative (Negative) RSV (RT-PCR) Negative (Negative) SARS-CoV-2 RNA (RT-PCR) Negative (Negative) Imaging Data Radiologist's impression: IMPRESSION: 1. No acute intracranial findings. IMPRESSION: 1. No acute cardiopulmonary findings. IMPRESSION: 1. No focal acute process to explain source of patient's symptoms. 2. Several chronic appearing findings as above. ECG Data EKG #1: Attestation: I personally reviewed and interpreted this ECG as follows: ECG completion date: 08/12/25 ECG completion time: 09:12 Interpretation: Normal sinus rhythm at a rate of 65 beats per minute. NC interval 158. QRS 107. QT/QTC 385/401. Good R-wave progression across the precordial leads. T- wave inversion in 3 but otherwise upright in contiguous inferior leads although baseline artifact limits full interpretation. No other T-wave inversions. Discharge Plan Discharge Clinical Impression: Near syncope, Hyperglycemia due to type 2 diabetes mellitus, Pseudohyponatremia, Glucosuria Patient Disposition: Home Condition: Stable Instructions: Antibiotic Form, Near Syncope (ED), Diabetic Hyperglycemia (ED) Additional Instructions: As we discussed, your extensive workup did not reveal an exact cause of your symptoms although the consideration of vasovagal near syncope is likely (possible component of orthostatic given your blood pressure at Dr Jung's office). Continue to take your medications as prescribed. Follow-up with primary care physician and loss prevention representative. Return to the emergency department any new or worsening symptoms. Patient Language: Tajik Prescriptions: No Action sildenafil (pulm.hypertension) 20 mg tablet See Rx Instructions PO DAILY Qty: 50 3RF Rx Instructions: Take 1-5 tablets by oral route as needed orally PRN vitamin d 2,000 units BYMOUTH DAILY aspirin [Obdulio Low Dose Aspirin] 81 mg tablet,delayed release (DR/EC) 81 mg PO DAILY (DME) blood-glucose meter [Blood Glucose Monitoring] Kit See Rx Instructions .Route Qty: 1 0RF Rx Instructions: To test blood glucose once daily (DME) lancets [FreeStyle Lancets] 28 gauge misc See Rx Instructions .ROUTE .MEDSUPPLY Qty: 100 3RF Rx Instructions: use to test BS once daily metoprolol succinate 25 mg tablet extended release 24 hr See Rx Instructions .ROUTE .COMPLEX Qty: 15 5RF Dose Instruction: Take 1/2 (one-half) tablet by mouth once daily Rx Instructions: Take 1/2 (one-half) tablet by mouth once daily Jardiance 25 mg tablet See Rx Instructions .ROUTE .COMPLEX Qty: 90 1RF Dose Instruction: Take 1 tablet by mouth once daily Rx Instructions: Take 1 tablet by mouth once daily metformin 500 mg tablet See Rx Instructions .ROUTE .COMPLEX Qty: 450 0RF Dose Instruction: TAKE 3 TABLETS BY MOUTH IN THE MORNING AND 2 IN THE EVENING Rx Instructions: TAKE 3 TABLETS BY MOUTH IN THE MORNING AND 2 IN THE EVENING losartan 25 mg tablet See Rx Instructions .ROUTE .COMPLEX Qty: 45 2RF Dose Instruction: Take 1/2 (one-half) tablet by mouth once daily Rx Instructions: Take 1/2 (one-half) tablet by mouth once daily glimepiride 2 mg tablet See Rx Instructions .ROUTE .COMPLEX Qty: 180 1RF Dose Instruction: Take 1 tablet by mouth twice daily Rx Instructions: Take 1 tablet by mouth twice daily gabapentin 100 mg capsule See Rx Instructions .ROUTE .COMPLEX Qty: 270 1RF Dose Instruction: TAKE 3 CAPSULES BY MOUTH THREE TIMES DAILY Rx Instructions: TAKE 3 CAPSULES BY MOUTH THREE TIMES DAILY atorvastatin 40 mg tablet See Rx Instructions .ROUTE .COMPLEX Qty: 90 1RF Dose Instruction: Take 1 tablet by mouth once daily Rx Instructions: Take 1 tablet by mouth once daily (DME) FreeStyle Lite Strips Strip See Rx Instructions .ROUTE .COMPLEX Qty: 50 0RF Dose Instruction: USE 1 STRIP TO CHECK GLUCOSE ONCE DAILY Rx Instructions: USE 1 STRIP TO CHECK GLUCOSE ONCE DAILY famotidine 40 mg tablet See Rx Instructions .ROUTE .COMPLEX Qty: 30 2RF Dose Instruction: Take 1 tablet by mouth once daily Rx Instructions: Take 1 tablet by mouth once daily Follow-up/Referrals: Yosef Edwards DO [Physician, Cardiology] Duane Jung MD [Primary Care Provider, Internal Medicine] Stand Alone Forms: Work/School Release IP Time of Disposition: 14:14
--- OUTSIDE RECORDS SUMMARY | 2025-08-12 11:28 | XMS_ITS | Clinical Summary ---
Author Organization [facility] Address [address] [place] [address] Care Team Providers Care Inspector Semiconductor Wafer Name Role Phone Duane Jung MD Primary Care Provider [phone] Source Comments [facility],non-owned Affiliates and Associated Physician Practices is amultiple site organization consisting of ambulatory clinics and hospital sitesin [place], [place], [place] and [place]. This disclosure is being madepursuant to the Care Everywhere program and may not contain all information available regarding this patient. Last updated 18.[facility] Allergies No known active allergies Medications * [...] Comments Blood Pressure 107/53 10/01/2018 8:05 PM CHAINSTITCH PANTS OUTSEAMER Pulse 73 10/01/2018 8:05 PM CHAINSTITCH PANTS OUTSEAMER Temperature 36.3 C (97.3 F) 10/01/2018 3:39 PM CHAINSTITCH PANTS OUTSEAMER Respiratory Rate 20 10/01/2018 8:05 PM CHAINSTITCH PANTS OUTSEAMER Oxygen Saturation 100% 10/01/2018 8:05 PM CHAINSTITCH PANTS OUTSEAMER Inhaled Oxygen Concentration - - Weight 81.6 kg (180 lb) 10/01/2018 3:39 PM CHAINSTITCH PANTS OUTSEAMER Height 172.7 cm (5' 8) 10/01/2018 3:39 PM CHAINSTITCH PANTS OUTSEAMER Body Mass Index 27.37 10/01/2018 3:39 PM CHAINSTITCH PANTS OUTSEAMER Plan of Treatment Health Maintenance Due Date Last Done Comments COLOGUARD (AGES 45-75) - COL ON CA SCREENING 1959 COLON MONITORING 1959 COLONOSCOPY - COLON CA SCREENING 1959 CT COLONOGRAPHY - COLON CA SCREENING 1959 Colorectal Cancer Screening 1959 FIT - COLON CA SCREENING 1959 FLEX SIG - COLON CA SCREENING 1959 HEPATITIS C SCREENING 06/17/1977 DTAP/TDAP/TD VACCINES (1 - Tdap) 1978 PNEUMOCOCCAL VACCINE 50+ (1 of 1 - PCV) 2009 ZOSTER VACCINE (1 of 2) 2009 DEPRESSION SCREENING 10/06/2024 COVID-19 VACCINE (1 - 2023-2 5 season) 2025 INFLUENZA VACCINE (#1) 2025 Respiratory Syncytial Virus [...] 12:05 AM 06/21/2018 4:51 PM Care Teams Inspector Semiconductor Wafer Relationship Specialty Start Date End Date Duane Jung MD [address] [place] [address] PCP - General Internal Medicine 06/20/18
--- OUTSIDE RECORDS SUMMARY | 2025-08-12 11:28 | XMS_ITS | Clinical Summary ---
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] on file Legal 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 Gender Identity Not on file Sexual Orientation [...] (#1) 2025 Medical Devices Implanted Type Area Polishing Machine Operator Helper Device Identifier Shelf Expiration Date Model / Serial / Lot Med[employer] X [id number] Resolute Primitivo 3mm 2.1-2.7fr 34mm 140cm Rapid Exchange Radiopaque - [id number] Implanted:Qty: 1 on 06/05/2021 by Deo Zamora MD at [facility] [employer] Inc 08/10/2022 [id number] / / Daig Carrillo [id number] Device Closure Angio-Seal Vip Bondek-Plus Polyglyd L70 Cm Od6 Fr Odsec.035 In Vascular - [id number] Implanted:Qty: 1 on 06/05/2021 by Deo Zamora MD at [facility] Medical Carrillo 02/02/2022 [id number] / / Med[employer] Usa [employer] X [id number] Resolute Berthold 2.5mm 2.1-2.7fr 38mm 140cm Rapid Exchange - [id number] Implanted:Qty: 1 on 07/10/2021 by Deo Zamora MD at [facility] [employer] Inc 12/06/2022 [id number] X / / Medtronic Usa Inc X [id number] Resolute Primitivo 3mm 2.1-2.7fr 34mm 140cm Rapid Exchange Radiopaque - [id number] Implanted:Qty: 1 on 07/10/2021 by Deo Zamora MD at [facility] [employer] Inc 02/17/2024 [id number] X / / [employer] Carrillo [id number] Synergy 3mm 24mm 144cm Radiopaque 1 Access Port Inflation Lumen - [id number] Implanted:Qty: 1 on 07/10/2021 by Deo Zamora MD at [facility] [employer] Carrillo 01/11/2023 [id number] / / Daig Carrillo [id number] Device Closure Angio-Seal Vip Bondek-Plus Polyglyd L70 Cm Od6 Fr Odsec.035 In Vascular - [id number] Implanted:Qty: 1 on 07/10/2021 by Deo Zamora MD at [facility] Medical Carrillo 03/05/2022 [id number] / / Insurance [facility] [place] Advance Directives For more information, please contact: [phone] * Full Code (Latest Code Status on File) Date Activated Date Inactivated Comments 07/10/2021 10:54 AM 07/11/2021 2:59 PM * Full Code Date Activated Date Inactivated Comments 06/05/2021 12:45 PM 06/06/2021 7:24 PM Care Teams Merchandise Examiner Relationship Specialty Start Date End Date Duane Jung MD PCP - General Internal Medicine 07/11/21
[2025-08-12 11:33] LABS: Magnesium 1.9 mg/dL (1.6-2.3)
[2025-08-12 11:45] LABS: NT Pro B Type Natriuretic Pept 35 pg/mL (19.9-100); Troponin I < 0.012 ng/mL (0.000-0.034)
[2025-08-12 11:55] LABS: Influenza A QL RT-PCR Negative (Negative); Influenza B QL RT-PCR Negative (Negative); RSV RNA, RT-PCR Negative (Negative); SARS-CoV-2 RNA PCR Negative (Negative)
[2025-08-12 11:58] LABS: Creatine Kinase 124 U/L (55-170)
[2025-08-12 12:21] LABS: Add Urine Microscopic? NO; Appearance Urine Clear (Clear); Glucose Urine UA 3+ mg/dL (Negative); Leukocyte Esterase Ur Negative LEU/UL (Negative); Nitrate Urine Negative (Negative); Specific Grav Ur 1.029 (1.001-1.035)
[2025-08-12] MEDS: MORPHINE SULFATE (*CRX) 4 MG/ML INJ 2 MG IV PUSH (13:39)
[2025-08-12] MEDS: ACETAMINOPHEN 500 MG TABLET 1000 MG PO (13:39)
[2025-08-12] MEDS: KETOROLAC 15 MG/ML VIAL (*BKC) IV PUSH (13:39)
== END 2025-08-12 14:46 | disposition home or self-care (01) ==
PROVIDERS: Emergency Provider Student in an Organized Health Care Education/Training Program; PCP Internal Medicine
DX: E11.65 Type 2 diabetes mellitus with hyperglycemia (principal); R55 Syncope and collapse; R81 Glycosuria; R06.02 Shortness of breath; Z20.822 Contact with and (suspected) exposure to COVID-19; I25.10 Atherosclerotic heart disease of native coronary artery without angina pectoris; I51.89 Other ill-defined heart diseases; E11.319 Type 2 diabetes mellitus with unspecified diabetic retinopathy without macular edema; E55.9 Vitamin D deficiency, unspecified; Z95.5 Presence of coronary angioplasty implant and graft; Z86.14 Personal history of Methicillin resistant Staphylococcus aureus infection; Z98.49 Cataract extraction status, unspecified eye; Z79.82 Long term (current) use of aspirin; Z79.84 Long term (current) use of oral hypoglycemic drugs; Z79.899 Other long term (current) drug therapy
CPT/HCPCS: 36415; 70450; 71046; 71260; 80053; 81003; 82550; 83735; 83880; 84484; 85025; 85380; 87637; 93005; 96374; 96375; 99284; A9270; J1885; J2270; Q9967

== ENCOUNTER 2025-09-06 02:55 | Day surgery (SDC) | payer MEDICARE, SELFPAY ==
[2025-08-22 10:46] VITALS: BMI 27.4
--- OUTSIDE RECORDS SUMMARY | 2025-09-06 02:57 | XMS_ITS | Clinical Summary ---
Author Organization [facility] Address [facility] [place] [address] Care Team Providers Care Commercial Photographer Name Role Phone Duane Jung MD Primary Care Provider [phone] Allergies Active Allergy Reactions Criticality Noted Date Comments Shellfish Protein-Containing Drug Products Hives,Swelling Medium 06/05/2021 Ate a lot of lobster bisque soup---throat swelled and he got hives Medications ondansetron 4 MG disintegrating tablet Take 1 tablet (4 mg total) by mouth every 8 (eight) hours as needed. 12 tablet 8 Active HYDROcodone-acetami nophen (NORCO) 5-325 MG tabletIndications:A cute Pain < 7 Day Supply Take 1 tablet by mouth every 6 (six) hours as needed. 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 Gender Identity Not on file Sexual Orientation Not on file Last Filed Vital Signs Vital Sign Reading Time Taken Comments Blood Pressure 124/68 08/15/2023 5:01 PM CANDY BAR ATTENDANT Pulse 64 08/15/2023 5:01 PM CANDY BAR ATTENDANT Temperature 36.4 C (97.5 F) 08/15/2023 5:01 PM CANDY BAR ATTENDANT Respiratory Rate 16 08/15/2023 5:01 PM CANDY BAR ATTENDANT Oxygen Saturation 100% 08/15/2023 5:01 PM CANDY BAR ATTENDANT Inhaled Oxygen Concentration - - Weight 84.4 kg (186 lb) 08/15/2023 5:01 PM CANDY BAR ATTENDANT Height 172.7 cm (5' 8) 08/15/2023 5:01 PM CANDY BAR ATTENDANT Body Mass Index 28.28 08/15/2023 5:01 PM CANDY BAR ATTENDANT Plan of Treatment Health Maintenance Due Date Last Done Comments Colorectal Cancer Screening Colonoscopy (10 Years) 1958 Hepatitis C 1976 Pneumococcal Vaccine: 50+ Ye ars (1 of 1 - PCV) 2008 Zoster Vaccines (1 of 2) 2008 Annual Medicare Wellness Visit 2023 COVID-19 Vaccine (2 - 2024-2 6 season) 2025 08/08/2021 Influenza Adult (#1) 2025 RSV Immunization or 60+ Years (1 - 1-dose 75+ series) 2033 DTaP, Tdap and Td Vaccines ( 2 - Td or Tdap) 08/15/2033 08/15/2023 Hepatitis A Vaccines Aged Out No long er eligible based on patient's age to complete this topic Meningococcal B Vaccine Aged Out No l onger eligible based on patient's age to complete this topic Meningococcal Vaccine Aged Out No tommy polina eligible based on patient's age to complete this topic RSV Immunizations Under 20 Months Aged Out No longer eligible based on patient's age to complete this topic Insurance [place] MED[place] MEDICAID MEDICARE Care Teams Commercial Photographer Relationship Specialty Start Date End Date Duane Jung MD PCP - General INTERNAL MEDICINE 06/20/18
[2025-09-06 12:31] VITALS: BP 124/64; PULSE 69; RESP 18; TEMP 36.6; O2SAT 98
[2025-09-06] MEDS: LACTATED RINGERS 1,000 ML 150 ML IV CONT (12:49)
--- NOTE | 2025-09-06 13:07 | PM.IMHP2 ---
H&P: HPI History of Present Illness Date/Time: 09/06/25 13:07 Chief Complaint: Positive Cologuard test Narrative: This is the patient's 1st colonoscopy. He was recently detected Cologuard positive. No family history of colorectal cancer. 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 BMI 26.0-26.9,adult Tick bite of back Cough with hemoptysis Chronic cough Night sweats Left knee pain Tingling of right arm and right side of face MRSA infection Infected hand Generalized abdominal pain Change in mole Atypical chest pain Abscess Diastolic dysfunction DM type 2 (diabetes mellitus, type 2) Orthostatic hypotension Lymphedema ASHD (arteriosclerotic heart disease) Pain and swelling of left lower extremity BMI 28.0-28.9,adult STARKEY (dyspnea on exertion) Heartburn SOB (shortness of breath) Fatigue Light headed Eczema Skin lesion Encounter for special screening examination for neoplasm of prostate Colon cancer screening 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,adult 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 Diabetic retinopathy Surgical History Surgical History (Updated 08/14/25 @ 09:22 by Carolina Rich MD) S/P coronary artery stent placement multiple S/P cataract surgery Family History Family History Sibling Family history of diabetes mellitus in first degree relative Family history of heart disease in male family member before age 55 Father Family history of primary malignant neoplasm of liver Mother Family history of malignant neoplasm of bone Social History Social History Smoking status: Never smoker Second hand tobacco smoke exposure: No Alcohol intake: current Substance use type: does not use Lack of Transportation: No Lack of Food: Never True Current Housing: I Have Housing Concerned About Future Housing: No Difficulty Paying Gas/Electric Bills: YES Difficulty Paying for Meds: No Currently Unemployed: Decline to Answer Education: Decline to Answer Difficulty w/ Childcare or Family Care: No Living arrangements: with family Occupation/Education: retired Gender identity (if verbalized by the patient): Male Meds Home Medications and Allergies Home Medications ?Medication ?Instructions ?Recorded ?Confirmed ?Type aspirin 81 mg tablet,delayed 81 mg PO DAILY 04/02/21 09/06/25 History release (Obdulio Low Dose Aspirin) blood-glucose meter (Blood Glucose #1 ea 08/26/23 08/22/25 Rx Monitoring kit) lancets 28 gauge (FreeStyle #100 ea 11/25/24 08/22/25 Rx Lancets) sildenafil (pulm.hypertension) 20 See Rx Instructions PO DAILY #50 12/22/24 08/22/25 Rx mg tablet tabs empagliflozin 25 mg tablet See Rx Instructions .Route 03/11/25 09/06/25 Rx (Jardiance) .COMPLEX #90 tabs losartan 25 mg tablet See Rx Instructions .Route 05/30/25 09/06/25 Rx .COMPLEX #45 tabs vitamin d 2,000 units BYMOUTH DAILY 06/17/25 08/22/25 History atorvastatin 40 mg tablet See Rx Instructions .Route 07/07/25 09/06/25 Rx .COMPLEX #90 tabs glimepiride 2 mg tablet See Rx Instructions .Route 07/07/25 09/06/25 Rx .COMPLEX #180 tabs blood sugar diagnostic (FreeStyle #50 ea 07/25/25 08/22/25 Rx Lite Strips) gabapentin 100 mg capsule See Rx Instructions .Route .COMPLEX 08/22/25 09/06/25 History famotidine 40 mg tablet See Rx Instructions .Route 08/24/25 09/06/25 Rx .COMPLEX #90 tabs metoprolol succinate 25 mg See Rx Instructions .Route 08/24/25 09/06/25 Rx tablet,extended release 24 hr .COMPLEX #15 tabs doxycycline hyclate 100 mg tablet 100 mg PO BID #20 tabs 08/25/25 09/06/25 Rx metformin 500 mg tablet See Rx Instructions .Route 08/25/25 09/06/25 Rx .COMPLEX #450 tabs Allergies Allergy/AdvReac Type Severity Reaction Status Date / Time shellfish derived Allergy Unknown Hives Verified 08/22/25 10:43 Vital Signs Vital Signs - 24 hr 09/06/25 12:31 Temperature 97.9 F Pulse Rate 69 Respiratory Rate 18 Blood Pressure 124/64 Pulse Oximetry 98 Oxygen Delivery Room Air Exam Const: General: cooperative and healthy appearing Resp: Effort & Inspection: normal respiratory effort and able to speak in complete sentences Auscultation: clear to auscultation bilaterally Cardio: Rate: regular rate Rhythm: regular rhythm GI: Inspection: normal to inspection GI Palp: No No hepatosplenomegaly present Auscultation: normal bowel sounds Rectal Exam: deferred Skin: General skin exam: normal color Psych: Appearance: grossly normal Mental Status: mental status grossly normal Assessment and Plan Assessment and plan (1) Positive colorectal cancer screening using Cologuard test: Code(s): R19.5 - Other fecal abnormalities Status: Acute Assessment and Plan: The patient is deemed a good candidate for the procedure. Consent signed. Will proceed. Prior Studies I have reviewed the following patient records and this information was taken into consideration when formulating the assessment and plan.: previous labs, previous ER visits, previous hospitalizations and previous clinic visits
--- NOTE | 2025-09-06 13:24 | S_PTH ---
PATIENT: Alfa Francisco Jr. LOC: [facility] U#:[id number] AGE/SX: 65/M ROOM: RE09/06/[address]: Douglas Andrade MD : 1960 BED: DIS: 09/06/2025 SPEC #: [id number] RECD: 09/06/25 13:40 STATUS: AMERICO REXochitl #: [id number] ETTA: 09/06/25 13:[address]: Douglas Andrade DEPT: [facility] Surgical RECD BY: Jude iL ENTERED: 09/06/25 13:41 SP TYPE: Surgical OTHR DR: Duane Jung MD Tissues: A - Colon Polypectomy B - Colon Polypectomy Procedures: Hematoxylin and Eosin Stain Gross and Microscopic Level 4
[2025-09-06 13:40] VITALS: BP 105/66; PULSE 60; RESP 15; O2SAT 98
[2025-09-06 13:50] VITALS: BP 105/66; PULSE 56; RESP 15; O2SAT 99
[2025-09-06 14:00] VITALS: BP 111/58; PULSE 56; RESP 19; O2SAT 98
--- NOTE | 2025-09-08 14:52 | P.PNAN_ITS ---
Anes - Initial Pre Proc Eval Procedure: Operation Date: 09/06/25 13:30 Proposed Procedures p Screening Colonoscopy - Douglas Andrade MD Date/Time: 09/08/25 14:52 Surgeon: Douglas Andrade MD Pre Op Diagnosis: Positive cologuard/screening Patient Data Age: 65 Gender: M Height: 1.73 m Weight: 78.2 kg Last Vital Signs Temp 36.6 C 09/06/25 12:31 Pulse 56 L 09/06/25 14:00 Resp 19 09/06/25 14:00 BP 111/58 L 09/06/25 14:00 Pulse Ox 98 09/06/25 14:00 O2 Del Method Room Air 09/06/25 14:00 Allergies Allergy/AdvReac Type Severity Reaction Status Date / Time shellfish derived Allergy Unknown Hives Verified 08/22/25 10:43 Home Medications ?Medication ?Instructions ?Recorded ?Confirmed ?Type aspirin 81 mg tablet,delayed 81 mg PO DAILY 04/02/21 1 11/07/24 History release (Obdulio Low Dose Aspirin) blood-glucose meter (Blood Glucose #1 ea 08/26/2308/06 Rx Monitoring kit) lancets 28 gauge (FreeStyle #100 ea 11/25/24 08/22/25 Rx Lancets) sildenafil (pulm.hypertension) 20 See Rx Instructions PO DAILY #50 12/22/24 08/22/25 Rx mg tablet tabs empagliflozin 25 mg tablet See Rx Instructions .Route 03/11/25 09/06/25 Rx (Jardiance) .COMPLEX #90 tabs losartan 25 mg tablet See Rx Instructions .Route 0 05/30/25 09/06/25 Rx .COMPLEX #45 tabs vitamin d 2,000 units BYMOUTH DAILY 08/22/25 History atorvastatin 40 mg tablet See Rx Instructions .Route 1 09/06/25 Rx .COMPLEX #90 tabs glimepiride 2 mg tablet See Rx Instructions .Route 1 09/06/25 Rx .COMPLEX #180 tabs blood sugar diagnostic (FreeStyle #50 ea 07/25/2508/06 Rx Lite Strips) gabapentin 100 mg capsule See Rx Instructions .Route . COMPLEX 08/22/25 09/06/25 History famotidine 40 mg tablet See Rx Instructions .Route 1 1/19/25 12/02/25 Rx .COMPLEX #90 tabs metoprolol succinate 25 mg See Rx Instructions .Route 08/24/25 09/06/25 Rx tablet,extended release 24 hr .COMPLEX #15 tabs doxycycline hyclate 100 mg tablet 100 mg PO BID #20 ta bs 08/25/25 09/06/25 Rx metformin 500 mg tablet See Rx Instructions .Route 1 10/25/24 09/06/25 Rx .COMPLEX #450 tabs Patient hx anesthesia problems: none Family hx anesthesia problems: none Results Review: All pre-operative results and documents have been reviewed as part of the pre- operative evaluation. 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 BMI 26.0-26.9,adult Tick bite of back Cough with hemoptysis Chronic cough Night sweats Left knee pain Tingling of right arm and right side of face MRSA infection Infected hand Generalized abdominal pain Change in mole Atypical chest pain Abscess Diastolic dysfunction DM type 2 (diabetes mellitus, type 2) Orthostatic hypotension Lymphedema ASHD (arteriosclerotic heart disease) Pain and swelling of left lower extremity BMI 28.0-28.9,adult STARKEY (dyspnea on exertion) Heartburn SOB (shortness of breath) Fatigue Light headed Eczema Skin lesion Encounter for special screening examination for neoplasm of prostate Colon cancer screening 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,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 Diabetic retinopathy Surgical History Surgical History (Updated 08/14/25 @ 09:22 by Carolina Rich MD) S/P coronary artery stent placement multiple S/P cataract surgery Family History Family History Sibling Family history of diabetes mellitus in first degree relative Family history of heart disease in male family member before age 55 Father Family history of primary malignant neoplasm of liver Mother Family history of malignant neoplasm of bone Social History Social History Smoking status: Never smoker Second hand tobacco smoke exposure: No Alcohol intake: current Substance use type: does not use Lack of Transportation: No Lack of Food: Never True Current Housing: I Have Housing Concerned About Future Housing: No Difficulty Paying Gas/Electric Bills: YES Difficulty Paying for Meds: No Currently Unemployed: Decline to Answer Education: Decline to Answer Difficulty w/ Childcare or Family Care: No Living arrangements: with family Occupation/Education: retired Gender identity (if verbalized by the patient): Male Lyle - Evbarbara Final PreProcedure Day of Procedure 09/08/25 14:52 Patient weight: overweight Heart: regular rate and rhythm Lungs: clear to auscultation Airway: Mallampati scale class II Neurological: alert and oriented Last oral intake: >/= 8 hours ASA classification: III Emergent: no Anesthetic plan: proceed Anesthesia type and monitoring: general GIVS and standard monitoring Results Review: All pre-operative results and documents have been reviewed as part of the pre- operative evaluation. Informed Consent: The patient's anesthetic plan and its attendant risks and benefits were discussed with the patient/family/POA. Questions were solicited and answers provided to the satisfaction of the patient/family/POA.
== END 2025-09-06 14:13 | disposition home or self-care (01) ==
PROVIDERS: PCP Internal Medicine; Referring Provider Internal Medicine; Visit Provider Internal Medicine Gastroenterology
PROC: 0DJD8ZZ Inspection of Lower Intestinal Tract, Via Natural or Artificial Opening Endoscopic (ICD-10-PCS; CPT 45378; principal; 2025-09-06 13:30)
DX: R19.5 Other fecal abnormalities (principal); D12.0 Benign neoplasm of cecum; K63.5 Polyp of colon; E11.9 Type 2 diabetes mellitus without complications
CPT/HCPCS: 45385; 82948; 88305; J2704; J7120